=== PATIENT | male | born 1950 | race Caucasian/White ===

== ENCOUNTER 2024-12-12 06:35 | Day surgery (SDC) | payer OTHER ==
[~2024-12-12] VITALS: Ht 180.3 cm; Wt 96.0 kg
[2024-12-12] VITALS (21 sets, daily range): BP systolic 99–179; BP diastolic 49–93
[~2024-12-12 06:35] MED LIST: AMLO5 PO; ASPI325 PO; FERR325 PO; IBUP400; LISI20 PO; LOSA50 PO; OMEP20ER
[2024-12-12] MEDS ORDERED: Benzocaine Oral Spray 0.5ML UD ONE (07:08)
[2024-12-12] MEDS ORDERED: NAPR220 PO (07:14)
[2024-12-12] MEDS ORDERED: Aspir 8181 MG PO (07:14)
--- NOTE | 2024-12-12 07:22 | NUR ---
Pre-Op teaching done. Pt verbalizes understanding. Ambulatory in Day Surgery. History, Chart, Medications and Allergies reviewed before start of procedure. Patient confirms NPO status and agrees with scheduled surgery. Patient States Post-Procedure ride home has been arranged.
--- NOTE | 2024-12-12 08:17 | NUR ---
12/12/24 0817 Mariana Colin [id number] CONFIRMED AND REVIEWED H&P, MEDCICATIONS, ALLERGIES, MEDICAL HISTORY, RESPIRATORY HISTORY, VITAL SIGNS, 3-LEAD EKG, CONSENTS, AND PHYSICIAN ORDERS. PATIENT CONFIRMS NPO STATUS AND AGREES WITH SCHEDULED PROCEDURE. MONITOR INTACT WITH CONTINUOUS PULSE OXIMETRY, CAPNOGRAPHY, 3-LEAD EKG, INTERMITTENT BP. SUPPLEMENTAL O2 TO BE TITRATED THROUGHOUT PROCEDURE TO MAINTAIN O2 SATURATION ABOVE 90%. PATIENT DETERMINED TO BE ASA APPROPRIATE FOR PROPOFOL SEDATION PRIOR TO START OF PROCEDURE BY DR. GARCIA. MALLAMPATI CLASS 2 AIRWAY: COMPLETE VISUALIZATION OF THE [facility]. 0816 DR GARCIA REVIEWING RESULTS OF PROCEDURES AND FOLLOW-UP RECCOMENDATION WITH PATIENT. GLASSES RETURNED TO PATIENT.
--- NOTE | 2024-12-12 08:24 | NUR ---
PT AWAKE, ALERT, AND RESPONDING APPROPRIATELY. PT'S RIDE CALLED, STATES IS 15 MINUTES AWAY. PT DENIES PAIN OR NAUSEA. Patient up to Ambulate independently. Gait steady. Discharge instructions reviewed with patient. Patient verbalizes understanding. Copy given to patient to take home. IV REMOVED. Discharged via wheelchair to private car for ride home.
== END 2024-12-12 08:34 | disposition home or self-care (01) ==
LOC: ORSCMMR 06:35 → ORD 07:30 → ORSCMMR 07:30
PROVIDERS: Internal Medicine Gastroenterology
PROC: 0DBM8ZX Excision of Descending Colon, Via Natural or Artificial Opening Endoscopic, Diagnostic (ICD-10-PCS; principal; 2024-12-12 07:30)
PROC: 0DBN8ZX Excision of Sigmoid Colon, Via Natural or Artificial Opening Endoscopic, Diagnostic (ICD-10-PCS; principal; 2024-12-12 07:30)
PROC: 0DB68ZX Excision of Stomach, Via Natural or Artificial Opening Endoscopic, Diagnostic (ICD-10-PCS; 2024-12-12 07:30)
PROC: 0DB48ZX Excision of Esophagogastric Junction, Via Natural or Artificial Opening Endoscopic, Diagnostic (ICD-10-PCS; 2024-12-12 07:30)
DX: K21.00 Gastro-esophageal reflux disease with esophagitis, without bleeding (principal); K22.70 Barrett's esophagus without dysplasia; K31.7 Polyp of stomach and duodenum; Z12.11 Encounter for screening for malignant neoplasm of colon; D12.4 Benign neoplasm of descending colon; K63.5 Polyp of colon; Z86.0101 Personal history of adenomatous and serrated colon polyps; I10 Essential (primary) hypertension; Z79.82 Long term (current) use of aspirin; Z79.899 Other long term (current) drug therapy
CPT/HCPCS: 88305; A9270; J2704; J7120